=== PATIENT | male | born 1985 | race Caucasian/White ===

== ENCOUNTER 2024-12-09 06:46 | Day surgery (SDC) | payer MEDICAID ==
[~2024-12-09] VITALS: Ht 188 cm; Wt 77.3 kg
[~2024-12-09 06:46] MED LIST: FERR-82 PO; GABA-529 PO; LEVO175T9 PO; METO-408 PO; METO5TAB2 PO; SODIUM CHLORIDE 0.9% 1,000 ML ONE; TACR0.5C3 PO; VENL-67 PO
[2024-12-09] MEDS: SODIUM CHLORIDE 0.9% 1,000 ML IV ONE (07:21)
[2024-12-09 07:46] LABS: GLUCOMETER DEV NAME(LOC) SDS.; GLUCOSE,POINT OF CARE 105 MG/DL (70-110)
[2024-12-09] MEDS ORDERED: LIDOCAINE/PF 2% 5 ML SYRINGE IVP ONE (18:00)
[2024-12-09] MEDS ORDERED: PROPOFOL 1% 20 ML VIAL IVP ONE (18:00)
== END 2024-12-09 10:35 | disposition home or self-care (01) ==
LOC: SURGERY 06:46
PROVIDERS: ATTEND Internal Medicine Gastroenterology
DX: R11.10 Vomiting, unspecified (principal); K29.70 Gastritis, unspecified, without bleeding; K31.84 Gastroparesis; K74.60 Unspecified cirrhosis of liver; E10.22 Type 1 diabetes mellitus with diabetic chronic kidney disease; N18.9 Chronic kidney disease, unspecified; Z98.890 Other specified postprocedural states; Z79.899 Other long term (current) drug therapy
CPT/HCPCS: 43239; 82962; 88305; C1769; J7030; J2704; J3490